=== PATIENT | male | born 1945 | race Caucasian/White ===

== ENCOUNTER 2019-08-30 12:24 | Emergency (ER) | payer MEDICARE, OTHER ==
[~2019-08-30] VITALS: Ht 175.3 cm; Wt 111.4 kg
[~2019-08-30 12:24] MED LIST: HCTZ25T PO; METF-436 PO; METF500T PO; TAMS0.4C32 PO
[2019-08-30 12:28] VITALS: BP 132/73
[2019-08-30] MEDS ORDERED: HYDR-3965 PO (13:03)
== END 2019-08-30 13:23 | disposition home or self-care (01) ==
LOC: ER 12:25
DX: S22.31XA Fracture of one rib, right side, initial encounter for closed fracture (principal); I10 Essential (primary) hypertension; F10.99 Alcohol use, unspecified with unspecified alcohol-induced disorder; Z98.890 Other specified postprocedural states; Z79.84 Long term (current) use of oral hypoglycemic drugs; Z79.899 Other long term (current) drug therapy; W01.0XXA Fall on same level from slipping, tripping and stumbling without subsequent striking against object, initial encounter; Y93.89 Activity, other specified; Y92.89 Other specified places as the place of occurrence of the external cause; Y99.8 Other external cause status; Y90.9 Presence of alcohol in blood, level not specified
CPT/HCPCS: 71046; 93005; 99284

== ENCOUNTER 2022-06-19 09:50 | Emergency (ER) | payer MEDICARE ==
[~2022-06-19] VITALS: Ht 175.3 cm; Wt 112.7 kg
[~2022-06-19 09:50] MED LIST changes: -HCTZ25T PO; +HYDR25TA5 PO
[2022-06-19 10:01] VITALS: BP 163/105
[2022-06-19] MEDS ORDERED: GABA-530 PO (11:01)
[2022-06-19] MEDS ORDERED: ACYC-129 PO (11:01)
== END 2022-06-19 11:17 | disposition home or self-care (01) ==
LOC: ER 09:50
DX: U07.1 COVID-19 (principal); B02.9 Zoster without complications; I10 Essential (primary) hypertension; E11.9 Type 2 diabetes mellitus without complications; Z79.899 Other long term (current) drug therapy
CPT/HCPCS: 99284

== ENCOUNTER 2022-09-02 11:11 | Day surgery (SDC) | payer MEDICARE ==
[2022-08-28 15:23] LABS: BASOPHILS # (AUTO) 0.1 X10'3 (0-0.2); BASOPHILS % (AUTO) 1.1 % (0-1); EOSINOPHILS # (AUTO) 0.1 X10'3 (0-0.9); EOSINOPHILS % (AUTO) 2.5 % (0-6); HEMATOCRIT 37.6 % (42.0-52.0); HEMOGLOBIN 12.1 g/dl (14.0-17.9); LYMPHOCYTES % (AUTO) 16.8 % (21-51); MEAN CORPUSCULAR HEMOGLOBIN 28.3 PG (27.0-31.0); MEAN CORPUSCULAR HGB CONC 32.3 g/dL (33.0-36.5); MEAN CORPUSCULAR VOLUME 87.8 FL (78-98); MEAN PLATELET VOLUME 9.9 FL (7.4-10.4); MONOCYTES # (AUTO) 0.6 X10'3 (0-0.9); MONOCYTES % (AUTO) 10.2 % (2-12); NEUTROPHILS % (AUTO) 69.4 % (42-75); PLATELET COUNT 221 X10'3 (140-440); RED BLOOD COUNT 4.28 X10'6 (4.70-6.10); WHITE BLOOD COUNT 5.8 X10'3 (4.5-11.0)
[2022-08-28 15:33] LABS: ALBUMIN 3.8 G/DL (3.4-5.0); ANION GAP 9 (8-16); BLOOD UREA NITROGEN 15 MG/DL (7-18); BUN/CREATININE RATIO 15.8 (5.4-32.0); CALCIUM 9.2 MG/DL (8.5-10.1); CHLORIDE 104 MMOL/L (99-107); CREATININE 0.95 MG/DL (0.60-1.10); GLUCOSE 108 MG/DL (70-104); POTASSIUM 3.6 MMOL/L (3.5-5.1); SODIUM 139 MMOL/L (135-145); TOTAL CARBON DIOXIDE 25.7 MMOL/L (24-32); eGFR 77 ML/MIN
[2022-08-28 15:35] LABS: APTT 31 SECONDS (22-32)
[2022-09-02] VITALS (15 sets, daily range): BP systolic 129–182; BP diastolic 71–117
[~2022-09-02] VITALS: Ht 175.3 cm; Wt 115.3 kg
[~2022-09-02 11:11] MED LIST changes: +GABA-530 PO; +MIDAZolam 1mg/ml 10ml vial IV ONE; +fentaNYL/PF 50MCG/1 ML 2ML syringe IV ONE; +normal saline 1000ml 1,000 ML IV SCH
[2022-09-02] MEDS ORDERED: HYDR12.55 (11:30)
[2022-09-02] MEDS ORDERED: OXYB10TA30 (11:30)
[2022-09-02] MEDS ORDERED: LOSA100T57 PO (11:30)
[2022-09-02] MEDS ORDERED: ZINC50TA60 PO (11:32)
[2022-09-02] MEDS ORDERED: APIX5TAB3 PO (11:32)
== END 2022-09-02 14:50 | disposition short-term general hospital (02) ==
LOC: SSTAY O 11:11
PROVIDERS: ATTEND Student in an Organized Health Care Education/Training Program
DX: I48.0 Paroxysmal atrial fibrillation (principal); I10 Essential (primary) hypertension; G47.33 Obstructive sleep apnea (adult) (pediatric); E11.9 Type 2 diabetes mellitus without complications; Z86.718 Personal history of other venous thrombosis and embolism; Z85.820 Personal history of malignant melanoma of skin
CPT/HCPCS: 36415; 80048; 82948; 85025; 85610; 85730; 92960; 93005; J2250; J3010; J7030; A4620

== ENCOUNTER 2023-06-30 13:39 | Outpatient (CLI) | payer MEDICARE ==
[~2023-06-30 13:39] MED LIST changes: +APIX5TAB3 PO; +ATOR10TA70 PO; +BENZ-111 PO; +FLO0.4C PO; +FURO40TA4 PO; -GABA-530 PO; +GABA100C PO; +HYDR-3972 PO; +LOP12.5T PO; -METF500T PO; -MIDAZolam 1mg/ml 10ml vial IV ONE; +POTA-207 PO; -TAMS0.4C32 PO; -fentaNYL/PF 50MCG/1 ML 2ML syringe IV ONE; -normal saline 1000ml 1,000 ML IV SCH
== END 2023-06-30 23:59 | disposition home or self-care (01) ==
LOC: RAD 13:39
PROVIDERS: ATTEND Thoracic Surgery (Cardiothoracic Vascular Surgery)
DX: I25.10 Atherosclerotic heart disease of native coronary artery without angina pectoris (principal); R07.2 Precordial pain
CPT/HCPCS: 71250

== ENCOUNTER 2025-05-29 08:50 | Outpatient (CLI) | payer MEDICARE ==
[~2025-05-29 08:50] MED LIST changes: -APIX5TAB3 PO; -BENZ-111 PO; +DILT120C88; -FLO0.4C PO; +GABA-530 PO; -GABA100C PO; -HYDR-3972 PO; +HYDR-3973 PO; -LOP12.5T PO; +PANT-47 PO; +TAMS-55 PO
== END 2025-05-29 23:59 | disposition home or self-care (01) ==
LOC: PUL REHAB 08:50
PROVIDERS: ATTEND Internal Medicine
DX: R06.02 Shortness of breath (principal)
CPT/HCPCS: 94618

== ENCOUNTER 2025-05-29 10:58 | Outpatient (CLI) | payer MEDICARE ==
--- NOTE | 2025-05-29 13:38 | RADIOLOGY REPORT ---
EXAM: CT CTA CHEST PE W/ IV CONTRAST HISTORY: SOB, melanoma of the lungs COMPARISON: Chest x-ray dated 09/15/2023. TECHNIQUE: Helical CT images of the chest were performed with IV contrast using pulmonary CTA protoco l. Sagittal and coronal reformatted images and 3D MIP images were obtained. This CT exam was performe d using 1 or more of the following dose reduction techniques: Automated exposure control, adjustment of the mA and/or kv according to patient size, or the use of iterative reconstruction techniques. Rad iation Dose: Chest: CTDI volume is 22.57 mGy. Dose-length product is 760.54 mGy*cm. FINDINGS: No pulmonary arterial filling defects are identified. There are multiple masses in the righ t lung and along the right pleura, the largest of which measures 8 cm AP x 6.2 cm transverse (image 4 7, series 2) in the right mid lung laterally. There are multiple left lung noncalcified pulmonary nod ules. No pneumothorax. There is a moderate right pleural effusion. There is peribronchial thickening . There are enlarged lymph nodes in the subcarinal region measuring 3.1 x 1.8 cm axially. There are multiple mildly enlarged lymph nodes in the precarinal region and AP window. There are partially calc ified lymph nodes in the left suprahilar region. The heart is borderline enlarged. 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 The central pulmonary arteries are ectatic. No thoracic aortic aneurysm or dis section. 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 There is a 15 mm nodule in the upper abdomen adjac ent to the celiac artery (image 416, series 4). IMPRESSION: 1. No evidence of pulmonary embolism. 2. Metastatic disease to the chest, including multiple bilateral lung masses and noncalcified pulmona ry nodules, more extensive on the right; right pleural nodular metastases; mediastinal pathologic lym phadenopathy. May also be upper abdominal retroperitoneal lymphadenopathy, not fully imaged here. 3. Cardiomegaly and postoperative changes of the heart. 4. Pulmonary arterial hypertension.
== END 2025-05-29 23:59 | disposition home or self-care (01) ==
LOC: 64 CT 10:58
PROVIDERS: ATTEND Internal Medicine
DX: J90 Pleural effusion, not elsewhere classified (principal); R59.0 Localized enlarged lymph nodes; R06.02 Shortness of breath; Z95.1 Presence of aortocoronary bypass graft; I51.7 Cardiomegaly; Z98.890 Other specified postprocedural states
CPT/HCPCS: 71275; Q9967